=== PATIENT | male | born 1985 | race Hispanic/Latino ===

== ENCOUNTER 2019-12-31 20:42 | Emergency (ER) | payer BC ==
--- OUTSIDE RECORDS SUMMARY | 2019-12-31 20:45 | XMS REPORT ---
:1985 Author Organization eClinicalWorks Care Team Providers Name Role Phone Quintero, Na Provider Role Unavailable Allergies, Adverse Reactions, Alerts Substance Reaction Event Type N.K.D.A. Info Not Available Non Drug Allergy Problems Problem Type Condition Code Onset Dates Condition Statu s Assessment Acute stress reaction F43.0 Active Assessment ADD (attention deficit disorder) F98.8 Active without hyperactivity Assessment Panic disorder [episodic paroxysmal F41.0 Active anxiety] Problem Acute stress reaction F43.0 Active Problem Gastroesophageal reflux disease, K21.9 Active esophagitis presence not specified Problem Panic disorder [episodic paroxysmal F41.0 Active anxiety] Problem Obesity, morbid, BMI 40.0-49.9 E66.01 Active Problem ADD (attention deficit disorder) F98.8 Active without hyperactivity Problem Allergic rhinitis J30.9 Active Medications Medication Code System Code Instructions Start End Date Status Dos age Date Vyvanse [facility] [id number] 50 MG Orally December 13, Active 1 cap myrna Once a day 2019 in the morning Xanax [facility] 49920305865 0.25 MG Orally December 13, Active 1 t ablet once a day prn 2019 anxiety attacks Results No Known Results Summary Purpose eClinicalWorks Submission
--- OUTSIDE RECORDS SUMMARY | 2019-12-31 20:45 | XMS REPORT ---
:1985 Author Organization eClinicalWorks Care Team Providers Name Role Phone Quintero, Na Provider Role Unavailable Allergies, Adverse Reactions, Alerts Substance Reaction Event Type N.K.D.A. Info Not Available Non Drug Allergy Problems Problem Type Condition Code Onset Dates Condition Statu s Assessment Gastroesophageal reflux disease, K21.9 Active esophagitis presence not specified Problem ADD (attention deficit disorder) F98.8 Active without hyperactivity Problem Allergic rhinitis J30.9 Active Problem Gastroesophageal reflux disease, K21.9 Active esophagitis presence not specified Assessment ADD (attention deficit disorder) F98.8 Active without hyperactivity Assessment Obesity, morbid, BMI 40.0-49.9 E66.01 Active Problem Obesity, morbid, BMI 40.0-49.9 E66.01 Active Medications Medication Code System Code Instructions Start End Date Status Dos age Date Vyvanse [facility] 60780973049 50 MG Orally November 10, Active 1 cap myrna Once a day 2019 in the morning Vyvanse ND 17899342400 30 MG Orally Oct 11, Active 1 capsu le Once a day 2019 in the morning Results No Known Results Summary Purpose eClinicalWorks Submission
--- OUTSIDE RECORDS SUMMARY | 2019-12-31 20:45 | XMS REPORT ---
:1985 Author Organization eClinicalWorks Care Team Providers Name Role Phone Quintero, Na Provider Role Unavailable Allergies No Known Allergies Problems Problem Type Condition Code Onset Dates Condition Statu s Problem Obesity, morbid, BMI 40.0-49.9 E66.01 Active Problem ADD (attention deficit disorder) F98.8 Active without hyperactivity Problem Allergic rhinitis J30.9 Active Medications No Known Medications Results No Known Results Summary Purpose eClinicalWorks Submission
--- OUTSIDE RECORDS SUMMARY | 2019-12-31 20:45 | XMS REPORT ---
:1985 Author Organization eClinicalWorks Care Team Providers Name Role Phone Quintero, Na Provider Role Unavailable Allergies, Adverse Reactions, Alerts Substance Reaction Event Type N.K.D.A. Info Not Available Non Drug Allergy Problems Problem Type Condition Code Onset Dates Condition Statu s Assessment Obesity, morbid, BMI 40.0-49.9 E66.01 Active Problem ADD (attention deficit disorder) F98.8 Active without hyperactivity Problem Allergic rhinitis J30.9 Active Problem Gastroesophageal reflux disease, K21.9 Active esophagitis presence not specified Assessment Encounter for general adult medical Z00.01 Active examination with abnormal findings Assessment ADD (attention deficit disorder) F98.8 Active without hyperactivity Problem Obesity, morbid, BMI 40.0-49.9 E66.01 Active Medications Medication Code System Code Instructions Start End Date Status Dos age Date Vy[place] [facility] [id number] 30 MG Orally Oct 11, Active 1 capsu le Once a day 2019 in the morning Results No Known Results Summary Purpose eClinicalWorks Submission
--- OUTSIDE RECORDS SUMMARY | 2019-12-31 20:46 | XMS REPORT ---
:1985 Author Organization [facility] t Address [address] [place] [address] Care Team Providers Name Role Phone Unavailable Unavailable Unavailable Problems Condition Condition Condition Status Onset Resolution Last Treatin g Comments Name Details Category Date Date Treatment Clinician Date Obesity, Obesity, Problem Active morbid, BMI morbid, BMI 40.0-49.9 40.0-49.9 ADD ADD Problem Active (attention (attention deficit deficit disorder) disorder) without without hyperactivi hyperactivi ty ty Allergic Allergic Problem Active rhinitis rhinitis Gastroesoph Gastroesoph Problem Active ageal ageal reflux reflux disease, disease, esophagitis esophagitis presence presence not not specified specified Acute Acute Problem Active stress stress reaction reaction Panic Panic Problem Active disorder disorder [episodic [episodic paroxysmal paroxysmal anxiety] anxiety] Allergies, Adverse Reactions, Alerts This patient has no known allergies or adverse reactions. Medications Ordered Filled Start Stop Current Ordering Indication Dosage Frequency Signature Comments Components Medication Medication Date Date Medication? Clinician (SIG) Name Name [place] Vyvanse 2020-0 Yes Na Quintero 1 capsule 4-14 in the 00:00: morning 00 Xanax Xanax 2020-0 Yes Na Quintero 1 tablet 4-14 00:00: 00 Encounters Start End Encounter Admission Attending Care Care Encounter Date/Time Date/Time Type Type Clinicians Facility Department ID 2019-12-14 2019-12-14 [id number] 15:40:00 15:40:00 [facility] 2019-11-11 2019-11-11 [id number] 16:00:00 16:00:00 [facility] 2019-10-26 2019-10-26 [id number] 11:16:00 11:16:00 [facility] 2019-10-11 2019-10-11 [id number] 11:00:00 11:00:00 [facility]
[2019-12-31 21:37] LABS: Absolute Lymphocytes (CBC) 2.3 K/uL (0.7-4.9); Hematocrit 45.7 % (39.6-49.0); MPV 8.6 fL (7.6-11.3); RBC Red Blood Cell Count 5.02 M/uL (4.33-5.43)
[2019-12-31 21:44] LABS: Protime INR 0.98
[2019-12-31 21:58] LABS: ALT/SGPT 59 U/L (12-78); AST/SGOT 25 U/L (15-37); Albumin 3.8 g/dL (3.4-5.0); Alkaline Phosphatase 63 U/L (45-117); BUN Blood Urea Nitrogen 12 mg/dL (7-18); Bicarbonate 27 mmol/L (21-32); Bilirubin Direct 0.1 mg/dL (0-0.2); Bilirubin Total 0.6 mg/dL (0.2-1.0); Glucose Level 85 mg/dL (74-106); Magnesium 1.9 mg/dL (1.8-2.4); NT PRO-BNP 13 pg/mL (<125); Potassium 3.7 mmol/L (3.5-5.1); Protein, Total 7.6 g/dL (6.4-8.2); Sodium Level 140 mmol/L (136-145); Troponin (Emerg Dept Use Only) < 0.02 ng/mL (0.0-0.045)
--- NOTE | 2019-12-31 22:10 | RAD REPORT ---
EXAM DESCRIPTION: RAD - Chest Single View - 12/31/2019 9:46 pm CLINICAL HISTORY: CHEST PAIN Chest pain. COMPARISON: CHEST SINGLE VIEW dated 06/05/2013; CHEST SINGLE VIEW dated 01/07/2013 FINDINGS: Portable technique limits examination quality. The lungs are grossly clear. The heart is normal in size. No displaced fractures. IMPRESSION: No acute intrathoracic process suspected.
--- NOTE | 2019-12-31 23:15 | EDPHYS ---
Physician Documentation [facility] Name: Lito Jeter Age: 34 yrs Sex: Male : 1985 Arrival Date: 12/31/2019 Time: 20:44 Bed 17 Private MD: ED Physician Adarsh Lezama HPI: 12/30 22:18 This 34 yrs old Male presents to ER via Ambulatory with complaints of Numbness kb Of Arm. 22:18 The patient or guardian complains of discomfort. The complaints affect the left arm. kb Context: The problem was sustained at home, resulted from unknown cause. Onset: The symptoms/episode began/occurred this morning. Treatment prior to arrival includes: no previous treatment. Modifying factors: The symptoms are alleviated by nothing. the symptoms are aggravated by nothing. Associated signs and symptoms: Pertinent positives: "discomfort, it doesn't hurt", of the left arm, Pertinent negatives: decreased range of motion, deformity, erythema, fever, nausea, numbness, pain, swelling, tingling, vomiting, warmth, weakness. Severity of symptoms: At their worst the symptoms were mild, in the emergency department the symptoms are unchanged. The patient has not experienced similar symptoms in the past. The patient has not recently seen a physician. Pt reports he noticed discomfort in his left arm this morning and it has not gotten any better. States the more he thought about it, the more he thought he should get it checked out. Reports he had some nausea before bed last night. States pain radiates up arm and into back and left chest. Denies cardiac history. Denies family history of cardiac problems besides htn. . Historical: - Allergies: 20:56 No Known Allergies; ca1 - Home Meds: 20:56 Vyvanse 50 mg oral cap 1 cap once daily [Active]; Xanax Oral as needed [Active]; ca1 - PMHx: 20:56 Anxiety; Hypertension; ca1 - PSHx: 20:56 Appendectomy; ca1 - Immunization history:: Adult Immunizations up to date. - Social history:: Smoking status: Patient/guardian denies using tobacco, the patient reports quitting approximately 8 years ago. ROS: 22:18 Constitutional: Negative for fever, chills, and weight loss, Neck: Negative for injury, kb pain, and swelling, Respiratory: Negative for shortness of breath, cough, wheezing, and pleuritic chest pain, Abdomen/GI: Negative for abdominal pain, vomiting, diarrhea, and constipation. +nausea Back: Negative for injury and pain, Skin: Negative for injury, rash, and discoloration, Neuro: Negative for headache, weakness, numbness, tingling, and seizure. 22:18 Cardiovascular: Positive for chest pain, Negative for edema, orthopnea, palpitations, paroxysmal nocturnal dyspnea. 22:18 MS/extremity: Positive for left arm discomfort. Exam: 21:14 Constitutional: This is a well developed, well nourished patient who is awake, alert, kb and in no acute distress. Head/Face: Normocephalic, atraumatic. ENT: Nares patent. No nasal discharge, no septal abnormalities noted. Tympanic membranes are normal and external auditory canals are clear. Oropharynx with no redness, swelling, or masses, exudates, or evidence of obstruction, uvula midline. Mucous membranes moist. Neck: Trachea midline, no thyromegaly or masses palpated, and no cervical lymphadenopathy. Supple, full range of motion without nuchal rigidity, or vertebral point tenderness. No Meningismus. Chest/axilla: Normal chest wall appearance and motion. Nontender with no deformity. No lesions are appreciated. Cardiovascular: Regular rate and rhythm with a normal S1 and S2. No gallops, murmurs, or rubs. Normal PMI, no JVD. No pulse deficits. Respiratory: Lungs have equal breath sounds bilaterally, clear to auscultation and percussion. No rales, rhonchi or wheezes noted. No increased work of breathing, no retractions or nasal flaring. Abdomen/GI: Soft, non-tender, with normal bowel sounds. No distension or tympany. No guarding or rebound. No evidence of tenderness throughout. Skin: Warm, dry with normal turgor. Normal color with no rashes, no lesions, and no evidence of cellulitis. MS/ Extremity: Pulses equal, no cyanosis. Neurovascular intact. Full, normal range of motion. Neuro: Awake and alert, GCS 15, oriented to person, place, time, and situation. Cranial nerves II-XII grossly intact. Motor strength 5/5 in all extremities. Sensory grossly intact. Cerebellar exam normal. Normal gait. 21:14 ECG was reviewed by the Attending Physician. Vital Signs: 20:51 BP 134 / 87; Pulse 76; Resp 18 S; Temp 97.9(O); Pulse Ox 100% on R/A; Weight 122.47 kg ca1 (R); Height 5 ft. 9 in. (175.26 cm) (R); 23:27 BP 128 / 82; Pulse 65 MON; Resp 16; Pulse Ox 100% ; rv 20:51 Body Mass Index 39.87 (122.47 kg, 175.26 cm) ca1 23:27 Normal Sinus Rhythm rv MDM: 21:02 Patient medically screened. kb 21:14 Data reviewed: vital signs, nurses notes. Data interpreted: Pulse oximetry: on room air kb is 100 %. Interpretation: normal. 23:13 Counseling: I had a detailed discussion with the patient and/or guardian regarding: the kb historical points, exam findings, and any diagnostic results supporting the discharge/admit diagnosis, lab results, radiology results, the need for outpatient follow up, a family practitioner, to return to the emergency department if symptoms worsen or persist or if there are any questions or concerns that arise at home. 12/30 21:13 Order name: Basic Metabolic Panel; Complete Time: 22:10 kb 12/30 21:13 Order name: CBC with Diff; Complete Time: 21:48 kb 12/30 21:13 Order name: LFT's; Complete Time: 22:10 kb 12/30 21:13 Order name: Magnesium; Complete Time: 22:10 kb 12/30 21:13 Order name: NT PRO-BNP; Complete Time: 22:10 kb 12/30 21:13 Order name: PT-INR; Complete Time: 21:54 kb 12/30 21:08 Order name: EKG; Complete Time: 21:08 ca1 12/30 21:08 Order name: EKG - Nurse/Tech; Complete Time: 21:08 ca1 12/30 21:13 Order name: Troponin (emerg Dept Use Only); Complete Time: 22:10 kb 12/30 21:13 Order name: XRAY Chest (1 view); Complete Time: 22:13 kb 12/30 21:13 Order name: Cardiac monitoring; Complete Time: 21:34 kb 12/30 22:43 Order name: Troponin (emerg Dept Use Only); Complete Time: 23:13 rv 12/30 22:44 Order name: EKG; Complete Time: 22:45 kb 12/30 21:13 Order name: IV Saline Lock; Complete Time: 21:36 kb 12/30 21:13 Order name: Labs collected and sent; Complete Time: 21:36 kb 12/30 21:13 Order name: O2 Per Protocol; Complete Time: 21:36 kb 12/30 21:13 Order name: O2 Sat Monitoring; Complete Time: 21:36 kb 12/30 22:44 Order name: EKG - Nurse/Tech; Complete Time: 22:48 kb EC:14 Rate is 71 beats/min. Rhythm is regular. QRS [place] is Normal. MT interval is normal at kb 144 msec. QRS interval is normal at 92 msec. QT interval is normal at 378 msec. Administered Medications: No medications were administered Disposition: 23:38 Co-signature as Attending Physician, Adarsh Lezama MD. briana Disposition: 12/31/19 23:14 Discharged to Home. Impression: Chest pain, unspecified. - Condition is Stable. - Discharge Instructions: Nonspecific Chest Pain, [id number]. - Medication Reconciliation Form, Thank You Letter, Antibiotic Education, Prescription Opioid Use form. - Follow up: Emergency Department; When: As needed; Reason: Worsening of condition. Follow up: Private Physician; When: 2 - 3 days; Reason: Recheck today's complaints, Continuance of care, Re-evaluation by your physician. Signatures: Dispatcher [employer] EDMS Chloe Dacosta, IS TECHNICIAN-C IS TECHNICIAN-Ckb Adarsh Lezama MD MD pkl Vicente, Ronaldo, RN RN rv Acob, Cheryl, RN RN [facility] Corrections: (The following items were deleted from the chart) 23:28 23:14 12/31/2019 23:14 Discharged to Home. Impression: Chest pain, unspecified. rv Condition is Stable. Forms are Medication Reconciliation Form, Thank You Letter, Antibiotic Education, Prescription Opioid Use. Follow up: Emergency Department; When: As needed; Reason: Worsening of condition. Follow up: Private Physician; When: 2 - 3 days; Reason: Recheck today's complaints, Continuance of care, Re-evaluation by your physician. kb
--- NOTE | 2019-12-31 23:15 | ER ---
Nurse's Notes [facility] Name: Lito Jeter Age: 34 yrs Sex: Male : 1985 Arrival Date: 12/31/2019 Time: 20:44 Bed 17 Private MD: Diagnosis: Chest pain, unspecified Presentation: 12/30 20:51 Chief complaint: Patient states: Discomfort on L arm, goes to the L shoulder, shoulder ca1 blade and L neck to the L jaw that started this morning. Reports chest discomfort started at 1500 -1600 today. Denies SOB. Reports nausea, dizziness. Coronavirus screen: Proceed with normal triage. Patient denies a cough. Patient denies shortness of breath or difficulty breathing. Patient denies measured and/or subjective temperature greater than 100.4F prior to today's visit. Patient denies travel on a cruise ship or to a country the [facility] currently lists as an affected area. Patient denies contact with known and/or suspected case of COVID-19. Ebola Screen: Patient negative for fever greater than or equal to 101.5 degrees Fahrenheit, and additional compatible Ebola Virus Disease symptoms Patient denies exposure to infectious person. Patient denies travel to an Ebola-affected area in the 21 days before illness onset. No symptoms or risks identified at this time. Initial Sepsis Screen: Does the patient meet any 2 criteria? No. Patient's initial sepsis screen is negative. Does the patient have a suspected source of infection? No. Patient's initial sepsis screen is negative. Risk Assessment: Do you want to hurt yourself or someone else? Patient reports no desire to harm self or others. Onset of symptoms was December 31, 2019. 20:51 Method Of Arrival: Ambulatory ca1 20:51 Acuity: ANA 3 ca1 Historical: - Allergies: 20:56 No Known Allergies; ca1 - Home Meds: 20:56 Vyvanse 50 mg oral cap 1 cap once daily [Active]; Xanax Oral as needed [Active]; ca1 - PMHx: 20:56 Anxiety; Hypertension; ca1 - PSHx: 20:56 Appendectomy; ca1 - Immunization history:: Adult Immunizations up to date. - Social history:: Smoking status: Patient/guardian denies using tobacco, the patient reports quitting approximately 8 years ago. Screenin:07 Abuse screen: Denies threats or abuse. Denies injuries from another. Nutritional ca1 screening: No deficits noted. Tuberculosis screening: No symptoms or risk factors identified. Fall Risk None identified. Assessment: 21:37 General: Appears comfortable, Behavior is calm, cooperative. Pain: Complains of pain in rv chest. Neuro: Level of Consciousness is awake, alert, obeys commands, Oriented to person, place, time, situation. Cardiovascular: Reports chest pain, chest discomfort Patient's skin is warm and dry. Rhythm is sinus rhythm. Respiratory: Airway is patent Respiratory effort is even, unlabored, Breath sounds are clear bilaterally. 23:27 Reassessment: Patient and/or family updated on plan of care and expected duration. Pain rv level reassessed. Patient is alert, oriented x 3, equal unlabored respirations, skin warm/dry/pink. Patient states feeling better. Patient states symptoms have improved. Vital Signs: 20:51 BP 134 / 87; Pulse 76; Resp 18 S; Temp 97.9(O); Pulse Ox 100% on R/A; Weight 122.47 kg ca1 (R); Height 5 ft. 9 in. (175.26 cm) (R); 23:27 BP 128 / 82; Pulse 65 MON; Resp 16; Pulse Ox 100% ; rv 20:51 Body Mass Index 39.87 (122.47 kg, 175.26 cm) ca1 23:27 Normal Sinus Rhythm rv ED Course: 20:44 Patient arrived in ED. fj1 20:55 Triage completed. ca1 20:56 Arm band placed on right wrist. ca1 20:58 Chloe Dacosta FNP-C is [facility]. kb 20:58 Adarsh Lezama MD is Attending Physician. kb 21:07 Patient has correct armband on for positive identification. Bed in low position. Call ca1 light in reach. Side rails up X 1. playground monitor on. Pulse ox on. NIBP on. 21:07 EKG done, by ED staff, reviewed by Chloe NELSON. ca1 21:19 Lefty Alejandre, MONTY is Primary Nurse. rv 21:20 Inserted saline lock: 18 gauge in right antecubital area, using aseptic technique. rv Blood collected. 21:46 XRAY Chest (1 view) In Process Unspecified. EDMS 23:27 No provider procedures requiring assistance completed. IV discontinued, intact, rv bleeding controlled, No redness/swelling at site. Pressure dressing applied. Administered Medications: No medications were administered Outcome: 23:14 Discharge ordered by MD. pelletier 23:28 Discharged to home ambulatory. rv 23:28 Condition: improved 23:28 Discharge instructions given to patient, Instructed on discharge instructions, follow up and referral plans. Demonstrated understanding of instructions, follow-up care. 23:28 Patient left the ED. rv Signatures: Dispatcher [employer] EDChloe Orona, TATUM-C LATHE HAND-Lefty Morelos, RN RN rv Daja White RN RN [facility] Isreal Sue fj
[2020-01-01 01:01] VITALS: TEMP 97.9; O2SAT 100
[2020-01-01 01:02] VITALS: BP 128/82
--- NOTE | 2020-01-02 13:11 | EKG ---
Test Date: 2019-12-31 Test Time: 21:02:21 Radio Presenter: MARISSA MEASUREMENT RESULTS: Intervals: Rate: 71 NM: 144 QRSD: 92 QT: 378 QTc: 410 Brandon: P: 37 NM: 144 QRS: 75 T: 10 INTERPRETIVE STATEMENTS: Normal sinus rhythm Normal ECG Compared to ECG 10/24/2016 06:54:00 Sinus bradycardia no longer present Electronically Signed On 01-02-20 13:11:02 CDT by Go Garibay
--- NOTE | 2020-01-02 13:11 | EKG ---
Test Date: 2019-12-31 Test Time: 22:41:01 Resin Mixer: RV MEASUREMENT RESULTS: Intervals: Rate: 64 NC: 146 QRSD: 94 QT: 390 QTc: 402 [place]: P: 43 NC: 146 QRS: 73 T: 15 INTERPRETIVE STATEMENTS: Normal sinus rhythm Normal ECG Compared to ECG 12/31/2019 21:02:21 No significant changes Electronically Signed On 01-02-20 13:10:48 CDT by Go Garibay
== END 2019-12-31 23:28 | disposition home or self-care (01) ==
LOC: ER 20:42
DX: R07.9 Chest pain, unspecified (principal); M79.602 Pain in left arm; I10 Essential (primary) hypertension; F41.9 Anxiety disorder, unspecified
CPT/HCPCS: 36415; 71045; 80048; 80076; 83735; 83880; 84484; 85025; 85610; 93005; 99284

== ENCOUNTER 2020-11-22 13:24 | Emergency (ER) | payer BC ==
--- OUTSIDE RECORDS SUMMARY | 2020-11-22 13:27 | XMS REPORT | Continuity of Care Document ---
:1985 Author Organization [facility] t Address [address] [place] [address] Care Team Providers Name Role Phone Unavailable Unavailable Unavailable Problems This patient has no known problems. Allergies, Adverse Reactions, Alerts This patient has no known allergies or adverse reactions. Medications Ordered Filled Start Stop Current Ordering Indication Dosage Frequency Signature Comments Components Source Medication Medication Date Date Medication? Clinician (SIG) Name Name Ellis Corral Yes Na Quintero [address] [facility] Procedures This patient has no known procedures. Encounters Start End Encounter Admission Attending Care Care Encounter Source Date/Time Date/Time Type Type Clinicians Facility Department ID 2020-10-11 2020-10-11 Outpatient [facility] [id number] [facility] 2020-10-10 2020-10-10 Outpatient [facility] [id number] [facility] 2020-09-13 2020-09-13 [facility] [id number] [facility] 2020-09-08 2020-09-08 Outpatient [facility] [id number] [facility] 2020-05-19 2020-05-19 Outpatient [facility] [id number] [facility] 2020-04-11 2020-04-11 [facility] [id number] [facility] 15:17:00 15:17:00 [facility] [employer] [facility] - Drive [facility] Medicine Outpati ent Clinics 2020-04-10 2020-04-10 [facility] [id number] 17:15:00 17:15:00 t [employer] s - Drive [facility] Out[facility] Clinics 2020-03-06 2020-03-06 [facility] [id number] 13:00:00 13:00:00 t [employer] - [place] [facility] Out[facility] Clinics 2020-02-15 2020-02-15 [facility] [id number] 10:15:00 10:15:00 t [employer] - [place] [facility] Outpati ent Clinics 2020-02-15 2020-02-15 [facility] [id number] 08:59:00 08:59:00 t [employer] - [place] [facility] Outpat[facility] ent Clinics 2020-02-03 2020-02-03 [facility] [id number] 09:16:00 09:16:00 t [employer] [facility] Out[facility] Clinics 2019-12-14 2019-12-14 [facility] [id number] [facility] 15:40:00 15:40:00 t [employer] - Drive [facility] Out[facility] Clin[facility] 2019-11-11 2019-11-11 [facility] [id number] 16:00:00 16:00:00 t [employer] - [employer] [facility] Out[facility] Clinics 2019-10-26 2019-10-26 [facility] [id number] [facility] 11:16:00 11:16:00 t [employer] s - Drive [facility] Outpat[facility] Clinics 2019-10-11 2019-10-11 [facility] [id number] 11:00:00 11:00:00 t [employer] [facility] Medicine Outpati ent Clinics Results This patient has no known results.
--- NOTE | 2020-11-22 17:20 | ER ---
Nurse's Notes [facility] Name: Lito Jeter Age: 34 yrs Sex: Male : 1985 Arrival Date: 11/22/2020 Time: 13:27 Bed Waiting Private MD: Taty Quintero Diagnosis: Presentation: 11/22 13:59 Chief complaint: Patient states: L ear ringing x 2 - 3 days. L arm numbness and ca1 tingling since Friday. Today, the tingling is going down the L leg and L foot. A\T\Ox4. VAN negative. Coronavirus screen: Client denies travel out of the [place] in the last 14 days. At this time, the client does not indicate any symptoms associated with coronavirus-19. Ebola Screen: Patient negative for fever greater than or equal to 101.5 degrees Fahrenheit, and additional compatible Ebola Virus Disease symptoms Patient denies exposure to infectious person. Patient denies travel to an Ebola-affected area in the 21 days before illness onset. No symptoms or risks identified at this time. Initial Sepsis Screen: Does the patient meet any 2 criteria? No. Patient's initial sepsis screen is negative. Does the patient have a suspected source of infection? No. Patient's initial sepsis screen is negative. Risk Assessment: Do you want to hurt yourself or someone else? Patient reports no desire to harm self or others. Onset of symptoms was November 22, 2020. 13:59 Method Of Arrival: Ambulatory ca1 13:59 Acuity: ANA 3 ca1 17:19 Note Registration said pt left. ca1 Historical: - Allergies: 14:06 No Known Allergies; ca1 - Home Meds: 14:06 Vyvanse 50 mg Oral cap 1 cap once daily [Active]; Xanax Oral as needed [Active]; ca1 - PMHx: 14:06 Anxiety; Hypertension; ca1 - PSHx: 14:06 Appendectomy; ca1 - Immunization history:: Flu vaccine is not up to date. - Social history:: Smoking status: Patient denies any tobacco usage or history of. Patient/guardian denies using alcohol, street drugs. Vital Signs: 13:59 BP 128 / 88; Pulse 93; Resp 16 S; Temp 99.3(TE); Pulse Ox 99% on R/A; Weight 117.93 kg ca1 (R); Height 5 ft. 10 in. (177.80 cm) (R); Pain 0/10; 13:59 Body Mass Index 37.31 (117.93 kg, 177.80 cm) ca1 ED Course: 13:27 Patient arrived in ED. am2 13:28 Taty Quintero MD is Private Physician. am2 14:02 Triage completed. ca1 14:06 Arm band placed on right wrist. ca1 17:19 Patient's name was called from ER lobby. No response. Unable to locate patient. Will ca1 disposition as left without being seen by a provider. Administered Medications: No medications were administered Outcome: 17:19 Patient left the ED. ca1 Signatures: Wendy Turner am2 Daja White RN RN ca1
[2020-11-22 17:36] VITALS: BP 128/88; TEMP 99.3; O2SAT 99
== END 2020-11-22 17:19 | disposition left against medical advice (07) ==
LOC: ER 13:24
DX: R20.2 Paresthesia of skin (principal); H93.12 Tinnitus, left ear; F41.9 Anxiety disorder, unspecified; I10 Essential (primary) hypertension; Z53.21 Procedure and treatment not carried out due to patient leaving prior to being seen by health care provider
CPT/HCPCS: 99281